=== PATIENT | female | born 1940 | race Caucasian/White ===

== ENCOUNTER 2022-11-03 05:28 | Day surgery (SDC) | payer MEDICARE, BC ==
[2022-11-02 16:35] LABS: BASOPHILS % (AUTO) 0.6 % (0-1); EOSINOPHILS # (AUTO) 0.2 X10'3 (0-0.9); EOSINOPHILS % (AUTO) 2.3 % (0-6); LYMPHOCYTES # (AUTO) 1.9 X10'3 (1.1-4.8); LYMPHOCYTES % (AUTO) 27.9 % (21-51); MEAN CORPUSCULAR HEMOGLOBIN 28.9 PG (27.0-31.0); MEAN CORPUSCULAR HGB CONC 33.6 g/dL (33.0-36.5); MEAN CORPUSCULAR VOLUME 86.1 FL (78-98); MEAN PLATELET VOLUME 8.4 FL (7.4-10.4); MONOCYTES # (AUTO) 0.6 X10'3 (0-0.9); MONOCYTES % (AUTO) 9.4 % (2-12); NEUTROPHILS # (AUTO) 4.1 X10'3 (1.8-7.7); NEUTROPHILS % (AUTO) 59.8 % (42-75); PRE OP HEMATOCRIT 34.5 % (35.0-45.0); PRE OP HEMOGLOBIN 11.6 g/dL (12.0-16.0); PRE OP PLATELET COUNT 235 X10'3 (140-440); PRE OP WHITE BLOOD COUNT 6.9 10'3 (4.8-10.8); RED BLOOD COUNT 4.01 X10'6 (4.20-5.60); RED CELL DISTRIBUTION WIDTH 16.3 % (11.5-14.5)
[2022-11-02 16:46] LABS: ALBUMIN 3.7 G/DL (3.4-5.0); ALKALINE PHOSPHATASE 96 IU/L (46-116); BLOOD UREA NITROGEN 28 MG/DL (7-18); BUN/CREATININE RATIO 29.8 (10.0-20.0); CALCIUM 9.5 MG/DL (8.5-10.1); CHLORIDE 101 MMOL/L (99-107); CREATININE 0.94 MG/DL (0.40-0.90); PRE OP ALT 20 U/L (30-65); PRE OP ANION GAP 8 (8-16); PRE OP AST 21 U/L (10-37); PRE OP BILIRUB, TOTAL 0.7 MG/DL (0.0-1.0); PRE OP GLUCOSE 95 MG/DL (70-104); PRE OP POTASSIUM 3.7 MMOL/L (3.4-5.1); PRE OP SODIUM 137 MMOL/L (135-145); TOTAL CARBON DIOXIDE 27.7 MMOL/L (24-32); TOTAL PROTEIN 7.4 G/DL (6.4-8.2); eGFR 57 ML/MIN
[2022-11-03] VITALS (22 sets, daily range): BP systolic 139–175; BP diastolic 64–90; PULSE 60–69; RESP 12–26; TEMP 98; O2SAT 94–98
[~2022-11-03] VITALS: Ht 162.6 cm; Wt 88.5 kg
[~2022-11-03 05:28] MED LIST: BUPR-114 PO; CHOL500050 PO; IBUP-2697 PO; LEVO200T8 PO; OXYB5TAB16 PO; PRAM0.5T3 PO; PRAV40TA3 PO; SPIR1TAB4 PO; ringers solution, lacted 1,000 ML IV SCH
[2022-11-03] MEDS ORDERED: cefazolin 2gm/D5W 100mL 100 ML IV ONE (05:30)
[2022-11-03] MEDS ORDERED: famotidine 20mg tablet PO ONE (05:30)
[2022-11-03] MEDS ORDERED: scopolamine 1mg/72 hr patch TD ONE (06:20)
[2022-11-03] MEDS ORDERED: LIDOcaine 1% 30ml preserv. free vial ONE (06:42)
[2022-11-03] MEDS ORDERED: BUPIVAcaine/PF 2.5 mg/ml (0.25%) 30ml vial ONE (06:42)
[2022-11-03] MEDS ORDERED: midazolam 1 mg/ML 2ml injection ONE (07:05)
[2022-11-03] MEDS ORDERED: fentaNYL/PF 50MCG/1 ML 2ML syringe ONE (07:05)
[2022-11-03] MEDS ORDERED: LIDOcaine 2% (20mg/ml) 5ml vial ONE (07:06)
[2022-11-03] MEDS ORDERED: propofol inj 20 ML IV ONE (07:06)
[2022-11-03] MEDS ORDERED: rocuronium 10mg/ml inj IV ONE (07:07)
[2022-11-03] MEDS ORDERED: dexamethasone sod phosphate 4mg/ml inj. ONE (07:07)
[2022-11-03] MEDS ORDERED: ondansetron/PF 4mg/2ml inj ONE (07:07)
[2022-11-03] MEDS ORDERED: ringers solution, lacted 1,000 ML IV SCH (07:10)
[2022-11-03] MEDS ORDERED: hydrALAZINE 20mg/ml inj. IV PRN (07:10)
[2022-11-03] MEDS ORDERED: meperidine/PF 25mg/ml syringe IV PRN ×2 (07:10)
[2022-11-03] MEDS ORDERED: labetalol 20mg/4ml (5mg/ml) syringe IV PRN (07:10)
[2022-11-03] MEDS ORDERED: ondansetron/PF 4mg/2ml inj IV PRN (07:10)
[2022-11-03] MEDS ORDERED: fentaNYL/PF 50MCG/1 ML 2ML syringe IV PRN ×2 (07:10)
[2022-11-03] MEDS ORDERED: sugammadex 200mg/2ml injection IV ONE (07:13)
[2022-11-03] MEDS ORDERED: desflurane 240ml liquid inh. IH ONE (07:34)
[2022-11-03] MEDS ORDERED: acetaminophen 1000 MG/100ml vial IV ONE (07:34)
[2022-11-03] MEDS ORDERED: ePHEDrine 50MG/ML INJ. ONE (07:54)
[2022-11-03] MEDS ORDERED: naloxone 0.4 mg/ml inj ONE (08:38)
--- NOTE | 2022-11-03 08:48 | NUR ---
Received from OR via [facility] TO RR 7, accompanied by Anesthesiologist DR MAY and report given by Anesthesiolgist. PT PRESENTS WITH PIV 20G LEFT HAND. SPO2 97% 6L MASK, LR RUNNING AT 100MLS/HR, ABD DRESSING X3 BANDAIDS CDI, VSS. Addendum: 11/03/22 at 0823 by Emilia Serrano RN, RN Amended: Links added.
--- NOTE | 2022-11-03 11:30 | NUR ---
PT TO PAS WITH DOMINGA GAFFNEY TO ROOM 244.
[2022-11-03] MEDS ORDERED: ibuprofen tablet 400 MG TABLET PO SCH (12:30)
--- NOTE | 2022-11-03 12:57 | NUR ---
PATIENT D/C HOME/HOTEL WITH ALL BELONGINGS AND PIV WAS D/C AND DRESSINGS CDI. I REVIEWED ON D/C INFO WITH PATIENT AND SHE VERBALIZED UNDERSTANDING. [facility] GAVE TRANSPORT AND DR YAP CONFIRMED D/C TO HOTEL WAS OKAY AND SHE MAY RETURN TO RETRIEVE VEHICLE TOMORROW
== END 2022-11-03 12:38 | disposition home or self-care (01) ==
LOC: PAS 05:28
PROVIDERS: ATTEND Surgery
DX: K40.90 Unilateral inguinal hernia, without obstruction or gangrene, not specified as recurrent (principal); I10 Essential (primary) hypertension; F41.9 Anxiety disorder, unspecified; E66.9 Obesity, unspecified; Z68.33 Body mass index [BMI] 33.0-33.9, adult; J44.9 Chronic obstructive pulmonary disease, unspecified; G47.30 Sleep apnea, unspecified; G25.81 Restless legs syndrome; E03.9 Hypothyroidism, unspecified; M19.90 Unspecified osteoarthritis, unspecified site; Z85.828 Personal history of other malignant neoplasm of skin; Z87.891 Personal history of nicotine dependence; Z88.5 Allergy status to narcotic agent; Z79.899 Other long term (current) drug therapy; Z96.653 Presence of artificial knee joint, bilateral; Z96.611 Presence of right artificial shoulder joint; Z98.890 Other specified postprocedural states; Z82.3 Family history of stroke; Z82.49 Family history of ischemic heart disease and other diseases of the circulatory system
CPT/HCPCS: 36415; 49650; 80053; 82948; 85025; 93005; C1781; J0131; J0690; J1100; J2250; J2310; J2405; J2704; J3010; J3490; J7030; J7120; Z7506; Z7508; Z7512; A4215; A4618